=== PATIENT | female | born 1945 | race Caucasian/White ===

== ENCOUNTER → 2019-12-16 | Outpatient (CLI) | payer MEDICARE ==
[~2019-12-16] MED LIST: ARIXTRA SQ; ARIXTRA SUBQ; ASPIRIN EC325 M1 PO; CALCIUM 600 +1 EAC1; CARDIOSTEROL C1 EACH; CELEBREX 200 M200 MG PO; FLAGYL500 MG PO; GLUCOPHAGE500 MG PO; GLUCOVANCE PO; LO-DOSE ASPIRIN81 M1 PO; METAMUCIL283 GM PO; MIRALAX255 GM PO; NEURONTIN 300300 M1 PO; NORCO 5-325 TA1 EACH PO; OXYCODONE HCL 55 MG PO; OXYIR5 MG PO; PERCOCET 5-3251 EACH PO; PRAVACHOL80 MG PO; SIMVASTATIN80 MG PO; STOOL SOFTENER1 EAC2 PO; TRAMADOL 50 MG50 MG PO
== END ==
LOC: M.LAB 02:01
DX: E87.6 Hypokalemia (principal)